=== PATIENT | female | born 1995 | race Caucasian/White ===

== ENCOUNTER → 2020-10-24 | Outpatient (BNVA) | payer OTHER, SELFPAY | PROVIDERS: Visit Provider Internal Medicine | DX: M23.8X1 Other internal derangements of right knee (principal) | CPT/HCPCS: 99202 ==

== ENCOUNTER → 2020-10-31 10:05 | Outpatient (BNVA) | payer OTHER, SELFPAY | PROVIDERS: Visit Provider Internal Medicine | DX: M23.91 Unspecified internal derangement of right knee (principal) | CPT/HCPCS: 99213 ==

== ENCOUNTER → 2020-11-14 13:51 | Outpatient (BNVA) | payer OTHER, SELFPAY | PROVIDERS: Visit Provider Internal Medicine | DX: S83.002D Unspecified subluxation of left patella, subsequent encounter (principal); S80.02XD Contusion of left knee, subsequent encounter; X58.XXXD Exposure to other specified factors, subsequent encounter | CPT/HCPCS: 99214 ==